=== PATIENT | male | born 1940 | race Caucasian/White ===

== ENCOUNTER 2021-03-12 16:36 | Inpatient (IN) ==
[2021-03-12] MEDS ORDERED: 0.9 % Sodium Chloride 1,000 ML IV ONE (17:04)
[2021-03-12] MEDS ORDERED: Ondansetron 4 MG/2 ML VIAL IVP PRN (17:04)
[2021-03-12] MEDS ORDERED: Morphine Sulfate 2 MG/ML SYRINGE IVP ONE (17:04)
[2021-03-12 17:29] LABS: Basophils # 0.1 K/mcL (0.0-0.2); Basophils % 0.7 %; Eosinophils % 0.4 %; Hematocrit 38.1 % (37.5-50.1); Hemoglobin 12.9 g/dL (12.9-16.9); Immature Granulocytes % 1.4 % (0-4); Lymphocytes # 0.6 K/mcL (0.6-4.6); Lymphocytes % 7.8 %; Mean Corpuscular HGB Conc 33.9 g/dL (31.6-35.5); Mean Corpuscular Hemoglobin 31.9 pg (28.0-33.3); Mean Corpuscular Volume 94.1 fL (83.0-100.0); Mean Platelet Volume 10.5 fL (9.4-12.4); Monocytes # 0.7 K/mcL (0.0-1.3); Monocytes % 9.5 %; Neutrophils # 5.7 K/mcL (1.6-8.9); Platelet Count 269 K/mcL (140-400); Red Blood Count 4.05 M/mcL (4.19-5.50); Red Cell Distribution Width 20.3 % (11.5-14.5); Segmented Neutrophils % 80.2 %; White Blood Count 7.1 K/mcL (4.3-11.1)
[2021-03-12 17:33] LABS: INR 1.3; Prothrombin Time 14.1 Seconds (9.4-12.1)
[2021-03-12 17:36] LABS: Activated Partial Thrombo Time 33.1 Seconds (26.0-36.0)
[2021-03-12 18:05] LABS: Alanine Aminotransferase 101 Units/L (7-52); Albumin 3.3 g/dL (3.5-5.7); Albumin/Globulin Ratio 1.1 (1.1-2.2); Alkaline Phosphatase 363 Units/L (34-104); Aspartate Amino Transferase 78 Units/L (13-39); BUN/Creatinine Ratio 22 (6-26); Bilirubin,Direct 12.1 mg/dL (0.0-0.2); Bilirubin,Indirect 11.4 mg/dL (0.0-1.0); Bilirubin,Total 23.5 mg/dL (0.3-1.0); Blood Urea Nitrogen 21 mg/dL (8-23); Calcium 9.1 mg/dL (8.6-10.3); Carbon Dioxide 24 mEq/L (23-29); Chloride 105 mEq/L (98-107); Glucose 135 mg/dL (70-105); Lipase 169 Units/L (11-82); Osmolality,Calculated 293 (280-300); Potassium 3.6 mEq/L (3.5-5.1); Sodium 139 mEq/L (136-145); Total Protein 6.3 g/dL (6.4-8.9); eGFR For African Americans > 60 (> 60); eGFR For Non-African Americans > 60 (> 60)
[2021-03-12] MEDS ORDERED: Melatonin 3 MG TABLET PO PRN (19:41)
[2021-03-12] MEDS ORDERED: Naloxone 0.4 MG/ML INJ IVP PRN (19:41)
[2021-03-12] MEDS ORDERED: Ondansetron ODT 4 MG TAB.RAPDIS SL PRN (19:41)
[2021-03-12] MEDS ORDERED: Perflutren Lipid Microsphere 1.3 ML in 0.9 % Sodium Chloride 8.7 ML IVP PRN (21:13)
[2021-03-12] MEDS: Nicotine 21 MG PATCH.TD24 TD SCH (22:31)
[2021-03-12] MEDS: 0.9 % Sodium Chloride 1,000 ML IVC SCH (22:31)
[2021-03-12 23:30] LABS: Bacteria,Urine Few per hpf (None-Few); Mucus,Urine Moderate per lpf (None-Few); Squamous Epithelial Cell,Urine Few per hpf (None-Few)
[2021-03-12 23:39] LABS: Clarity,Urine Slightly Cloudy (Clear); Color,Urine DARK YELLOW (Yellow)
[2021-03-12 23:40] LABS: Bilirubin,Urine Large (Negative); Blood,Urine Negative (Negative); Glucose,Urine (UA) 100 mg/dL (Normal); Ketones,Urine Trace mg/dL (Negative); Leukocyte Esterase,Urine Negative (Negative); Nitrite,Urine Negative (Negative); PH,Urine 5.5 pH Units (5.0-8.0); Protein,Urine 30 mg/dL (Neg-Trace); Specific Gravity,Urine 1.025 (1.010-1.025); Urobilinogen,Urine Normal (Normal)
[2021-03-13 02:41] LABS: Basophils % 0.8 %; Eosinophils # 0.1 K/mcL (0.0-0.6); Eosinophils % 1.1 %; Hematocrit 33.4 % (37.5-50.1); Immature Granulocytes % 1.3 % (0-4); Lymphocytes # 0.6 K/mcL (0.6-4.6); Lymphocytes % 11.6 %; Mean Corpuscular HGB Conc 33.2 g/dL (31.6-35.5); Mean Corpuscular Hemoglobin 31.3 pg (28.0-33.3); Mean Corpuscular Volume 94.1 fL (83.0-100.0); Mean Platelet Volume 11.4 fL (9.4-12.4); Monocytes # 0.6 K/mcL (0.0-1.3); Monocytes % 10.8 %; Neutrophils # 3.9 K/mcL (1.6-8.9); Platelet Count 230 K/mcL (140-400); Red Blood Count 3.55 M/mcL (4.19-5.50); Red Cell Distribution Width 20.2 % (11.5-14.5); Segmented Neutrophils % 74.4 %; White Blood Count 5.3 K/mcL (4.3-11.1)
[2021-03-13 02:50] LABS: Hemoglobin 11.1 g/dL (12.9-16.9)
[2021-03-13 02:57] LABS: BUN/Creatinine Ratio 24 (6-26); Blood Urea Nitrogen 19 mg/dL (8-23); Calcium 8.5 mg/dL (8.6-10.3); Carbon Dioxide 22 mEq/L (23-29); Chloride 109 mEq/L (98-107); Glucose 117 mg/dL (70-105); Osmolality,Calculated 289 (280-300); Potassium 3.8 mEq/L (3.5-5.1); Sodium 138 mEq/L (136-145); eGFR For African Americans > 60 (> 60); eGFR For Non-African Americans > 60 (> 60)
[2021-03-13] MEDS: 0.9 % Sodium Chloride 1,000 ML IVC SCH ×3 (05:48→22:50)
[2021-03-13 09:02] LABS: INR 1.1; Prothrombin Time 12.6 Seconds (9.4-12.1)
[2021-03-13 09:42] LABS: Albumin 2.9 g/dL (3.5-5.7); Albumin/Globulin Ratio 1.2 (1.1-2.2); Bilirubin,Direct 10.8 mg/dL (0.0-0.2); Bilirubin,Indirect 9.7 mg/dL (0.0-1.0); Bilirubin,Total 20.5 mg/dL (0.3-1.0); Globulin 2.5 g/dL (2.4-3.5); Phosphorous 2.6 mg/dL (2.7-4.5); Total Protein 5.4 g/dL (6.4-8.9)
[2021-03-13] MEDS ORDERED: *HR* Propofol 200 MG/20 ML VIAL IVP ONE (13:09)
[2021-03-13] MEDS ORDERED: *HR* FentaNYL (PF) 100 MCG/2 ML VIAL IVP PRN (13:17)
[2021-03-13] MEDS ORDERED: Albuterol 2.5 MG/3 ML NEBULIZER IH PRN (13:17)
[2021-03-13] MEDS ORDERED: *HR* Rocuronium Bromide 50 MG/5 ML VIAL ONE (13:17)
[2021-03-13] MEDS ORDERED: Lidocaine -MPF 2% 5 ML VIAL ONE (13:17)
[2021-03-13] MEDS ORDERED: Ondansetron 4 MG/2 ML VIAL IVP PRN (13:17)
[2021-03-13] MEDS ORDERED: Ondansetron 4 MG/2 ML VIAL ONE (13:52)
[2021-03-13] MEDS: Pantoprazole 40 MG VIAL IVP SCH (14:52)
[2021-03-13] MEDS ORDERED: ESOMEPRAZOLE MAGNESIUM 20 MG PO PRN (18:08)
[2021-03-13 18:28] VITALS: O2SAT 98
[2021-03-13] MEDS: Nicotine 21 MG PATCH.TD24 TD SCH (22:06)
[2021-03-14 00:55] LABS: Basophils % 0.2 %; Hematocrit 33.1 % (37.5-50.1); Hemoglobin 11.1 g/dL (12.9-16.9); Immature Granulocytes % 0.9 % (0-4); Lymphocytes # 0.4 K/mcL (0.6-4.6); Mean Corpuscular HGB Conc 33.5 g/dL (31.6-35.5); Mean Corpuscular Hemoglobin 31.9 pg (28.0-33.3); Mean Corpuscular Volume 95.1 fL (83.0-100.0); Mean Platelet Volume 10.6 fL (9.4-12.4); Monocytes # 0.4 K/mcL (0.0-1.3); Monocytes % 8.3 %; Neutrophils # 3.5 K/mcL (1.6-8.9); Platelet Count 224 K/mcL (140-400); Red Blood Count 3.48 M/mcL (4.19-5.50); Red Cell Distribution Width 19.8 % (11.5-14.5); Segmented Neutrophils % 80.6 %; White Blood Count 4.3 K/mcL (4.3-11.1)
[2021-03-14 01:16] LABS: Alanine Aminotransferase 75 Units/L (7-52); Albumin 2.7 g/dL (3.5-5.7); Albumin/Globulin Ratio 1.1 (1.1-2.2); Alkaline Phosphatase 290 Units/L (34-104); Aspartate Amino Transferase 63 Units/L (13-39); BUN/Creatinine Ratio 24 (6-26); Bilirubin,Total 19.4 mg/dL (0.3-1.0); Blood Urea Nitrogen 16 mg/dL (8-23); Carbon Dioxide 20 mEq/L (23-29); Chloride 109 mEq/L (98-107); Globulin 2.4 g/dL (2.4-3.5); Glucose 134 mg/dL (70-105); Osmolality,Calculated 289 (280-300); Potassium 3.7 mEq/L (3.5-5.1); Sodium 138 mEq/L (136-145); Total Protein 5.1 g/dL (6.4-8.9); eGFR For African Americans > 60 (> 60); eGFR For Non-African Americans > 60 (> 60)
[2021-03-14] MEDS ORDERED: *HR* Enoxaparin 40 MG/0.4 ML SYRINGE SQ SCH (06:00)
[2021-03-14 07:05] VITALS: BP 157/66; PULSE 58; TEMP 97.5
[2021-03-14] MEDS ORDERED: Heparin 1,000 UNITS/500 mL 500 ML ONE (09:24)
[2021-03-14] MEDS: Pantoprazole 40 MG VIAL IVP SCH (10:18)
== END 2021-03-14 14:32 | disposition left against medical advice (07) | DRG 435 ==
LOC: 3ANU 16:36 → EMEROOARM 16:36 → SUATTDRO 18:25 → 3ANU 19:51 → SUATTDRO 03-13 16:58
PROVIDERS: ADMIT Hospitalist; ATTEND General Practice
PROC: ENDOEUS (2021-03-13 14:30)

== ENCOUNTER 2021-03-22 08:38 | Inpatient (IN) ==
[2021-03-22] MEDS ORDERED: Ampicillin/Sulbactam 1,500 MG in 0.9 % Sodium Chloride Mini Bag 100 ML IVPB ONE (09:08)
[2021-03-22] MEDS ORDERED: Piperacillin/Tazobactam 3.375 GM in D5% in Water (Mini-Bag+) 100 ML IVPB ONE (09:08)
[2021-03-22] MEDS ORDERED: *HR* FentaNYL (PF) 100 MCG/2 ML VIAL IVP ONE ×2 (09:08→10:07)
[2021-03-22] MEDS ORDERED: *HR* Midazolam HCl 2 MG/2 ML VIAL IVP ONE ×2 (09:08→10:07)
[2021-03-22] MEDS ORDERED: Heparin 1,000 UNITS/500 mL 500 ML ONE (09:33)
[2021-03-22] MEDS ORDERED: 0.9 % Sodium Chloride 500 ML ONE (09:55)
[2021-03-22] MEDS ORDERED: *HR* FentaNYL (PF) 100 MCG/2 ML VIAL ONE (10:09)
[2021-03-22] MEDS ORDERED: *HR* Midazolam HCl 2 MG/2 ML VIAL ONE (10:09)
[2021-03-22] MEDS ORDERED: Ondansetron 4 MG/2 ML VIAL ONE (10:22)
[2021-03-22] MEDS ORDERED: Ondansetron 4 MG/2 ML VIAL IVP ONE (10:23)
[2021-03-22] MEDS ORDERED: Isovue-300 50ML VIAL IVP ONE ×2 (10:29→10:35)
[2021-03-22] MEDS ORDERED: Melatonin 3 MG TABLET PO PRN (12:51)
[2021-03-22] MEDS ORDERED: Naloxone 0.4 MG/ML INJ IVP PRN (12:51)
[2021-03-22] MEDS: Ondansetron 4 MG/2 ML VIAL IVP PRN (18:50)
[2021-03-22] MEDS: *HR* HYDROcodone/Acet 5/325 mg TABLET PO PRN (22:40)
[2021-03-23] MEDS: Ondansetron 4 MG/2 ML VIAL IVP PRN (04:38)
[2021-03-23] MEDS ORDERED: Ketorolac 30 MG/ML VIAL IVP ONE (04:52)
[2021-03-23 05:20] LABS: Hematocrit 37.8 % (37.5-50.1); Hemoglobin 12.4 g/dL (12.9-16.9); Mean Corpuscular HGB Conc 32.8 g/dL (31.6-35.5); Mean Corpuscular Hemoglobin 31.6 pg (28.0-33.3); Mean Corpuscular Volume 96.2 fL (83.0-100.0); Mean Platelet Volume 11.7 fL (9.4-12.4); Platelet Count 225 K/mcL (140-400); Red Blood Count 3.93 M/mcL (4.19-5.50); Red Cell Distribution Width 17.5 % (11.5-14.5); White Blood Count 8.6 K/mcL (4.3-11.1)
[2021-03-23 05:26] LABS: Alanine Aminotransferase 86 Units/L (7-52); Albumin 2.6 g/dL (3.5-5.7); Alkaline Phosphatase 308 Units/L (34-104); Aspartate Amino Transferase 66 Units/L (13-39); BUN/Creatinine Ratio 34 (6-26); Blood Urea Nitrogen 29 mg/dL (8-23); Calcium 8.3 mg/dL (8.6-10.3); Carbon Dioxide 32 mEq/L (23-29); Chloride 102 mEq/L (98-107); Globulin 2.7 g/dL (2.4-3.5); Glucose 138 mg/dL (70-105); Magnesium 2.2 mg/dL (1.6-2.6); Osmolality,Calculated 306 (280-300); Phosphorous 3.1 mg/dL (2.7-4.5); Potassium 3.2 mEq/L (3.5-5.1); Sodium 144 mEq/L (136-145); Total Protein 5.3 g/dL (6.4-8.9); eGFR For African Americans > 60 (> 60); eGFR For Non-African Americans > 60 (> 60)
[2021-03-23] MEDS: Aspirin Enteric Coated 81 MG Tablet PO SCH (08:47)
[2021-03-23] MEDS: Potassium Chloride Elixir 20 MEQ/15 ML UDC PO ONE ×2 (08:47→08:50)
[2021-03-23] MEDS ORDERED: 0.9 % Sodium Chloride 1,000 ML IVC ONE (19:50)
[2021-03-23] MEDS: *HR* HYDROcodone/Acet 5/325 mg TABLET PO PRN (23:40)
[2021-03-24] MEDS: Aspirin Enteric Coated 81 MG Tablet PO SCH (09:15)
[2021-03-24] MEDS ORDERED: 0.9 % Sodium Chloride 500 ML IVC ONE (11:22)
[2021-03-24] MEDS ORDERED: Glycopyrrolate 0.2 MG/ML VIAL IVP PRN (11:53)
[2021-03-24] MEDS ORDERED: *HR* LORazepam 2 MG/ML VIAL IVP PRN (11:53)
[2021-03-25] MEDS: *HR* HYDROcodone/Acet 5/325 mg TABLET PO PRN (16:45)
[2021-03-25] MEDS: Ondansetron 4 MG/2 ML VIAL IVP PRN ×2 (18:22→23:50)
[2021-03-26 00:03] VITALS: O2SAT 92
[2021-03-26] MEDS ORDERED: Prochlorperazine 10 MG/2 ML VIAL IVP PRN (03:23)
[2021-03-26 04:07] VITALS: BP 86/60; PULSE 56; TEMP 97.4
[2021-03-26] MEDS: *HR* HYDROcodone/Acet 5/325 mg TABLET PO PRN (08:17)
[2021-03-26] MEDS ORDERED: *HR* HYDROmorphone (PF) 1 MG/ML SYRINGE IVP PRN (08:23)
[2021-03-26] MEDS: Ondansetron 4 MG/2 ML VIAL IVP PRN (09:02)
== END 2021-03-26 13:11 | disposition hospice, inpatient (51) | DRG 435 ==
LOC: SUATTDRO → INTRAD 08:38 → 3ANU 08:38 → SUATTDRO 12:51
PROVIDERS: ADMIT Internal Medicine; ATTEND Internal Medicine

== ENCOUNTER 2021-03-26 09:58 | Inpatient (IN) ==
[2021-03-26] MEDS ORDERED: *HR* LORazepam Oral Conc 2 MG/ML PO PRN (10:17)
[2021-03-26] MEDS ORDERED: Bisacodyl 10 MG RECTAL SUPPOSITORY RC PRN (10:17)
[2021-03-26] MEDS ORDERED: Morphine Sulfate Oral CONC 10 MG/0.5 ML ORAL.SYG SL PRN (10:23)
[2021-03-26] MEDS ORDERED: Ondansetron 4 MG/2 ML VIAL IVP PRN (10:29)
[2021-03-26] MEDS ORDERED: *HR* FentaNYL PATCH 25 MCG PATCH TD SCH (10:30)
[2021-03-26] MEDS ORDERED: Bisacodyl 10 MG RECTAL SUPPOSITORY RC ONE (14:30)
[2021-03-26] MEDS: Haloperidol Oral Conc 10 MG/5 ML UDC PO SCH ×2 (14:32→15:16)
[2021-03-26] MEDS: *HR* HYDROmorphone 2 MG/ML SYRINGE IVP PRN ×2 (15:10→21:32)
[2021-03-26] MEDS ORDERED: *HR* LORazepam 2 MG/ML VIAL IVP PRN (15:27)
[2021-03-26] MEDS ORDERED: Haloperidol Lactate 5 MG/ML VIAL IVP SCH (18:00)
== END 2021-03-26 23:30 | disposition expired | DRG 951 ==
LOC: 3ANU 13:16 → 2ANU 22:29
PROVIDERS: ADMIT Internal Medicine Hospice and Palliative Medicine; ATTEND Internal Medicine Hospice and Palliative Medicine